=== PATIENT | female | born 1985 | race Asian ===

== ENCOUNTER 2017-05-23 00:30 | Observation (INO) | payer BC, OTHER ==
[2017-05-23 01:14] VITALS: BMI 20.5
[2017-05-23] MEDS ORDERED: Lidocaine 2% Viscous Solution 20 ML, Aluminum & Magnesium Hydroxide 30 ML, Donnatal Eli... SSW SCH (02:00)
[2017-05-23] MEDS ORDERED: Sodium Chloride 0.9% 10 ML ONE (03:13)
[2017-05-23] MEDS ORDERED: Morphine 10 MG/ML VIAL SLOW IVP SCH (03:15)
[2017-05-23] MEDS ORDERED: Ondansetron HCl/PF 4 MG/2 ML Vial IVP SCH (03:30)
[2017-05-23 03:46] LABS: #Lymphocytes 1.3 thou/uL (1.20-3.40); #Monocytes 0.7 thou/uL (0.11-0.59); #Neutrophils 7.1 thou/uL (1.40-6.50); %Basophils 0.5 % (0.0-1.0); %Eosinophils 0.3 % (0.0-10.0); %Lymphocytes 14.6 % (21.0-51.0); %Monocytes 7.2 % (0.0-10.0); %Neutrophils 77.4 % (42.0-75.0); Hemoglobin 10.9 g/dL (12.0-16.0); Mean Corpuscular HGB CONC 34.1 g/dL (32.0-36.0); Mean Corpuscular Hemoglobin 32.3 pg (27.0-31.0); Mean Corpuscular Volume 94.9 fl (81.0-99.0); Mean Platelet Volume 9.3 fL (7.4-10.4); Platelet Count 134 thou/uL (130-400); RBC Distribution Width 11.4 % (11.5-14.5); Red Blood Cell (RBC) Count 3.37 mill/uL (4.20-5.40); White Blood Cell (WBC) Count 9.2 thou/uL (4.8-10.8)
[2017-05-23 04:04] LABS: ALT (SGPT) 39 U/L (8-55); AST (SGOT) 37 U/L (5-34); Albumin 3.4 g/dL (3.5-5.0); Alkaline Phosphatase 166 U/L (40-150); Anion Gap 11 mmol/L (10-20); BUN (Urea Nitrogen) 6 mg/dL (7.0-18.7); Bilirubin, Total 1.6 mg/dL (0.2-1.2); Calc. Creatinine Clearance 126 mL/min (70-130); Calcium 8.3 mg/dL (7.8-10.44); Carbon Dioxide 24 mmol/L (22-29); Chloride 103 mmol/L (98-107); Estimated GFR-MDRD Greater than 90; Globulin 2.8 g/dL (2.4-3.5); Glucose 83 mg/dL (70-105); Lipase 19 U/L (8-78); Potassium 3.2 mmol/L (3.5-5.1); Protein, Total 6.2 g/dL (6.0-8.3); Sodium 135 mmol/L (136-145)
[2017-05-23] MEDS ORDERED: Ondansetron HCl/PF 4 MG/2 ML Vial IVP PRN (07:09)
[2017-05-23] MEDS ORDERED: Lactated Ringer's 1,000 ML IV SCH ×2 (07:15)
--- NOTE | 2017-05-23 08:20 | HP ---
DATE OF ENCOUNTER: 05/23/2017 [employer] ARTIST: Dr. Eliazar Pham. CHIEF COMPLAINT: Abdominal pain. HISTORY OF PRESENT ILLNESS: The patient is a 32-year-old G1, P0 female with an intrauterine at 35 weeks who is presenting today with abdominal pains that began several hours before presentation. The patient reports that she has been having abdominal pain and bad heartburn off and on for a while now for which she has been on Prilosec and other [id number] remedies. They report that her medications have been working this time. She reports some nausea. Denies any fever or headache, chest pain, shortness of breath. She denies any illness. Denies any new rash, abdominal pains, vaginal bleeding, leakage of fluid or urinary symptoms. PAST MEDICAL HISTORY: Negative. PAST SURGICAL HISTORY: Breast augmentation. SOCIAL HISTORY: Denies drug, alcohol or tobacco use. MEDICATIONS: vitamins and folic acid. ALLERGIES: No known drug allergies. OBSTETRICAL LABORATORY DATA: Blood type is O positive, antibody screen is negative. She is rubella immune, RPR nonreactive, GC chlamydia negative, hepatitis B surface antigen nonreactive, HIV nonreactive. One hour Glucola was 138. Her quad screen is negative. REVIEW OF SYSTEMS: Per HPI. PHYSICAL EXAMINATION: VITAL SIGNS: Blood pressure 105/58, heart rate 56, respiratory rate of 18, temperature 97.7. GENERAL: She appears to be in mild to moderate distress with this pain. She is alert and oriented, and cooperative and pleasant to interact with. HEENT: Head is normocephalic, atraumatic. LUNGS: Clear to auscultation bilaterally. HEART: Has a regular rate and rhythm. ABDOMEN: Soft. She does have some tenderness bilaterally. EXTREMITIES: Nontender, nonedematous. GENITOURINARY: Has been deferred. LABORATORY DATA AND IMAGING: Hemoglobin 10.9, hematocrit 32.0, platelets of 134 ,000, white count of 9.2. Sodium 135, potassium 3.2, creatinine 0.51, glucose 83, total bilirubin 1.6, AST 37, ALT 39. Amylase is 54, lipase is 19. Abdominal ultrasound, pending final report; however, preliminary report communication is that there are gallstones present and the common bile duct is dilated to 8 mm. ASSESSMENT: The patient is a 32-year-old G1, P0 female with an intrauterine at 35 weeks, presenting with acute onset abdominal pain and was found to have gallstones with dilated common bile duct. Her lab values are marginally abnormal with a bilirubin of 1.6 with the upper limits of normal at 1.2 and with AST of 37 with the upper limits of normal 34. Amylase and lipase are both negative. Patient is without pain now after one dose of 4 mg of morphine IV, which is covered her for the last 4 hours with the dilated common bile duct and marginal abnormalities. Plan at this time is to admit the patient for observation and repeat her lab work around noon and General Surgery needs to be consulted. We will order an MRCP to better evaluate for this potential gallstone in the bile duct. I have communicated with Dr. Pham who was asked the hospitalist team to continue to follow her today. NEELAM
--- NOTE | 2017-05-23 09:49 | ULT ---
PRELIMINARY REPORT/[facility]/EMERGENCY AFTER HOURS PROCEDURE: EXAM: US Abdomen Limited, Right Upper Quadrant EXAM DATE/TIME: Exam ordered 05/23/2017 4:05 AM CLINICAL HISTORY: 32 years old, female; Pain; Other: Upper abd pain, 35wks preg; TECHNIQUE: Real-time ultrasound of the right upper quadrant with image documentation. COMPARISON: No relevant prior studies available. FINDINGS: Liver: There is a nonspecific 1.6 cm hyperdense focus within the liver for which hemangioma or adenom a are possible. Gallbladder: There is no gallbladder wall thickening or pericholecystic fluid. A negative sonographic Salazar sign is reported. Multiple calcified gallstones are present. Common bile duct: Common bile duct measures approximately 9 mm in diameter. No stones. No dilation. Pancreas: Unremarkable as visualized. Right kidney: RIGHT kidney measures 9.2 x 4.8 x 5.2 cm. No stones. No hydronephrosis. IMPRESSION: 1. Cholelithiasis without definite ultrasound evidence of acute cholecystitis; note that negative Salazar's sign is not reliable as patient has been medicated. 2. There is a nonspecific 1.6 cm hyperdense focus within the liver for which hemangioma or adenoma ar e possible. Thank you for allowing us to participate in the care of your patient. Dictated and Authenticated by: Xavi Lo MD 05/23/2017 4:59 AM Central Time ([place] & [place]) FINAL REPORT GALLBLADDER ULTRASOUND: Cholelithiasis is noted. Gallbladder wall appears normal. There is a hyperechoic lesion in the right lobe of the liver measuring up to 1.6 cm. Considerations include a hepatic hemangioma as noted on the preliminary report. This could be confirmed or further evaluated with CT abdomen with and without contrast following hemangioma protocol. CODE T POS: [facility]
[2017-05-23 11:51] VITALS: TEMP 98.2
[2017-05-23 12:37] LABS: Hemoglobin 10.3 g/dL (12.0-16.0); Mean Corpuscular HGB CONC 34.6 g/dL (32.0-36.0); Mean Corpuscular Hemoglobin 32.5 pg (27.0-31.0); Mean Corpuscular Volume 94.1 fl (81.0-99.0); Mean Platelet Volume 9.5 fL (7.4-10.4); Platelet Count 123 thou/uL (130-400); RBC Distribution Width 11.4 % (11.5-14.5); Red Blood Cell (RBC) Count 3.16 mill/uL (4.20-5.40); White Blood Cell (WBC) Count 5.8 thou/uL (4.8-10.8)
[2017-05-23 13:08] LABS: ALT (SGPT) 31 U/L (8-55); AST (SGOT) 26 U/L (5-34); Alkaline Phosphatase 145 U/L (40-150); Anion Gap 6 mmol/L (10-20); BUN (Urea Nitrogen) 6 mg/dL (7.0-18.7); Bilirubin, Total 0.7 mg/dL (0.2-1.2); Calc. Creatinine Clearance 121 mL/min (70-130); Calcium 8.1 mg/dL (7.8-10.44); Carbon Dioxide 27 mmol/L (22-29); Chloride 105 mmol/L (98-107); Estimated GFR-MDRD Greater than 90; Globulin 2.4 g/dL (2.4-3.5); Glucose 70 mg/dL (70-105); Potassium 3.4 mmol/L (3.5-5.1); Protein, Total 5.4 g/dL (6.0-8.3); Sodium 135 mmol/L (136-145)
--- NOTE | 2017-05-23 14:08 | DIS ---
TIME OF SERVICE: 1400 HOSPITAL COURSE: Ms. Goncalves is a 32-year-old 1 at 35 weeks gestation who was placed in observa tion status for abdominal pain by Dr. Mcwilliams. She was found to have a mildly dilated common bile du ct on ultrasound with an AST of 37, ALT at 39 and a bilirubin of 1.6 upon admission. She was admitte d for IV fluids. MRCP was performed which revealed no evidence of stones in the common bile duct and just stones in the gallbladder. There was also noted to be a 1-2 cm lesion on the liver. Official report is not back yet, but it does not appear that this appears to be consistent with a malignancy. Repeat liver enzymes decreased. Her ALT and AST to within normal limits. Her bilirubin went from 1 .6 to 0.7 and her white count remained was 5.8 with hematocrit of 30%. The patient's pain resolved w ith IV fluids and antiemetics and was rated 0/10 upon discharge. She had no contractions. She had r eactive heart rate tracing throughout. The patient was sent home on a low fat diet with schedu led followup with Dr. Pham next week.
--- NOTE | 2017-05-23 14:39 | MRI ---
MRI OF THE ABDOMEN WITOUT CONTRAST: COMPARISON: Gallbladder ultrasound 05/23/17. HISTORY: Upper abdominal pain. TECHNIQUE: Multiplanar, multisequence MRI images were obtained of the abdomen without contrast. FINDINGS: There are multiple filling defects in the gallbladder consistent with cholelithiasis. The common mandy e duct is normal in caliber. No obvious filling defects are seen within the common bile duct. MRCP images show a normal-caliber common bile duct and pancreatic duct. There is a partially visualized and an enlarged uterus. The kidneys, adrenal glands, splee n, and pancreas are unremarkable. There are well-circumscribed foci of high T2 signal in the liver m easuring up to 1.8 cm in size. Contrast is not given, so these cannot be fully assessed and may repr esent either cysts or hemangiomas. IMPRESSION: 1. Cholelithiasis without evidence of choledocholithiasis. 2. Hepatic masses may represent hemangiomas or cysts. POS: [facility]
[2017-05-23 14:54] VITALS: BP 92/54
== END 2017-05-23 14:20 | disposition home or self-care (01) ==
LOC: ERS 00:30 → L&D/OP 00:30 → L&D 07:24 → UNDOADMOB 07:24 → EDSTATUS 12:25 → UNDODISOB 14:20
PROVIDERS: ADMIT Obstetrics & Gynecology; ATTEND Obstetrics & Gynecology
DX: O99.613 Diseases of the digestive system complicating pregnancy, third trimester (principal); K80.20 Calculus of gallbladder without cholecystitis without obstruction; K83.8 Other specified diseases of biliary tract; Z3A.35 35 weeks gestation of pregnancy; Z98.890 Other specified postprocedural states
CPT/HCPCS: 36415; 74181; 76705; 80053; 82150; 83690; 85025; 96360; 96361; G0378; J2270

== ENCOUNTER 2017-05-27 17:44 | Day surgery (SDC) | payer BC, OTHER ==
[2017-05-27 18:15] VITALS: BMI 21.0
[2017-05-27] MEDS ORDERED: Promethazine HCl 25 MG/ML VIAL IM/IV PRN (18:35)
--- NOTE | 2017-05-27 18:39 | PDOC.EVN ---
Event Note - Event Note Event Note: @1830: 32 year old G1 Po with knoewn HX GB stones, sees Dr Pham for care, here for RUQ colic. Some nausea, no emesis. No fever. No contrcations, no LOF, NO VB Review of systems: complete review done, findings per HPI Allergies: none Surg: None OB: G1 Physical: vitals stable, afebrile Neg murphys Abd NT Ut Gravid s=d Pelvic deferred Monitor: Cat 1, no contaction pattern Assessment: known GB stones, colic Plan: 1. Bentyl 2. Phenergan 3. CBC 4. CMP 5. NST
[2017-05-27 19:05] LABS: #Basophils 0.1 thou/uL (0.0-0.2); #Lymphocytes 1.3 thou/uL (1.20-3.40); #Monocytes 0.5 thou/uL (0.11-0.59); %Basophils 0.9 % (0.0-1.0); %Eosinophils 0.3 % (0.0-10.0); Hematocrit 32.2 % (36.0-47.0); Mean Platelet Volume 9.9 fL (7.4-10.4); White Blood Cell (WBC) Count 7.8 thou/uL (4.8-10.8)
[2017-05-27] MEDS ORDERED: Lactated Ringer's 1,000 ML IV SCH (19:15)
[2017-05-27 19:29] LABS: ALT (SGPT) 15 U/L (8-55); AST (SGOT) 15 U/L (5-34); Alkaline Phosphatase 155 U/L (40-150); Anion Gap 10 mmol/L (10-20); BUN (Urea Nitrogen) Less than 4 mg/dL (7.0-18.7); Bilirubin, Total 0.7 mg/dL (0.2-1.2); Calc. Creatinine Clearance 127 mL/min (70-130); Calcium 8.2 mg/dL (7.8-10.44); Carbon Dioxide 24 mmol/L (22-29); Chloride 106 mmol/L (98-107); Estimated GFR-MDRD Greater than 90; Globulin 2.8 g/dL (2.4-3.5)
[2017-05-27 20:11] VITALS: BP 98/61; TEMP 98.3
--- NOTE | 2017-05-27 20:12 | PDOC.EVN ---
Event Note - Event Note Event Note: Labs normal. No WBC elevation.
[2017-05-27] MEDS ORDERED: Morphine 4 MG/ML Carpuject IM SCH (21:15)
[2017-05-27] MEDS ORDERED: Morphine 10 MG/ML VIAL IM SCH (21:45)
== END 2017-05-27 22:00 | disposition home or self-care (01) ==
LOC: L&D/OP 17:44
PROVIDERS: ATTEND Obstetrics & Gynecology
DX: O99.613 Diseases of the digestive system complicating pregnancy, third trimester (principal); Z3A.36 36 weeks gestation of pregnancy; Z79.899 Other long term (current) drug therapy; Z98.890 Other specified postprocedural states
CPT/HCPCS: 36415; 80053; 85025; 96360; 96361; 96372; 96375; J2270; J2550

== ENCOUNTER 2017-06-16 10:10 | Inpatient (IN) | payer BC, MEDICAID ==
[~2017-06-16 10:10] MED LIST: Lidocaine 2% Viscous Solution 20 ML, Aluminum & Magnesium Hydroxide 30 ML, Donnatal Eli... SSW SCH
[2017-06-17] MEDS ORDERED: Ondansetron HCl/PF 4 MG/2 ML Vial IVP PRN ×3 (05:41→16:55)
[2017-06-17] MEDS ORDERED: Zolpidem Tartrate 5 MG TAB PO PRN ×2 (05:41→16:55)
[2017-06-17] MEDS ORDERED: Ibuprofen 800 MG TAB PO PRN (05:41)
[2017-06-17] MEDS ORDERED: Docusate 100 MG CAP PO PRN (05:41)
[2017-06-17] MEDS ORDERED: LR 500 ML/Oxytocin 10 units 500 ML IV SCH (05:41)
[2017-06-17] MEDS ORDERED: Misoprostol 200 MCG TAB PR PRN (05:41)
[2017-06-17] MEDS ORDERED: Lidocaine 1% (PF) 30 ML VIAL SC PRN (05:41)
[2017-06-17] MEDS ORDERED: LR / Pitocin 40 units/1000 ml 1,000 ML IV PRN (05:41)
[2017-06-17] MEDS ORDERED: Acetaminophen 500 MG TAB PO PRN (05:41)
[2017-06-17] MEDS ORDERED: HYDROcodone/Acetaminophen 5/325 mg Tablet PO PRN ×2 (05:41)
[2017-06-17] MEDS ORDERED: Diphenoxylate HCl/Atropine Tablet PO PRN ×2 (05:41)
[2017-06-17] MEDS ORDERED: Promethazine HCl 25 MG/ML VIAL IM PRN ×2 (05:41→13:29)
[2017-06-17 06:00] VITALS: BMI 20.5
[2017-06-17] MEDS: Lactated Ringer's 1,000 ML IV SCH ×2 (06:22→10:48)
[2017-06-17 06:33] LABS: Hemoglobin 11.8 g/dL (12.0-16.0); Mean Corpuscular HGB CONC 33.2 g/dL (32.0-36.0); Mean Corpuscular Volume 93.5 fl (81.0-99.0); Mean Platelet Volume 9.9 fL (7.4-10.4); Platelet Count 138 thou/uL (130-400); RBC Distribution Width 11.7 % (11.5-14.5)
[2017-06-17 07:14] LABS: Syphilis Antibody Nonreactive (Nonreactive); Syphilis Antibody Index 0.03 S/CO (<1.00 Non-Reactive)
[2017-06-17] MEDS ORDERED: Fentanyl 4 mcg/Marc 0.1% Cadd 100 ML ONE (08:41)
[2017-06-17 08:57] LABS: HBSAg Index 0.63 S/CO (0-0.99); Hep B Surf Ag Non-Reactive S/CO (NonReactive)
[2017-06-17] MEDS ORDERED: Bupivacaine PF 0.5% 30 ML VIAL ONE (11:11)
[2017-06-17] MEDS ORDERED: Bupivacaine 0.25% 10 ML VIAL ONE (11:11)
[2017-06-17] MEDS ORDERED: Naloxone HCl 0.4 mg/ml Vial IVP PRN ×2 (13:29)
[2017-06-17] MEDS ORDERED: Eucerin (Mineral Oil/Petrolatum,White) 30 gm Jar TOP PRN (13:29)
[2017-06-17] MEDS ORDERED: diphenhydrAMINE 50 MG/ML VIAL IVP PRN (13:29)
[2017-06-17] MEDS ORDERED: Acetaminophen 325 MG TAB PO PRN (13:29)
[2017-06-17] MEDS ORDERED: Lactated Ringer's 500 ML IV PRN (13:29)
[2017-06-17] MEDS ORDERED: ePHEDrine/0.9% NaCl/PF SYRINGE 50 mg/10 ml SLOW IVP PRN (13:29)
[2017-06-17] MEDS ORDERED: Communication Order-Pharmacy FS SCH (13:30)
[2017-06-17] MEDS ORDERED: Fentanyl 4mcg/Marcaine 0.1% Cassette 100 ML EPIDURAL SCH (13:30)
[2017-06-17] MEDS ORDERED: Milk Of Magnesia 30 ML UDCUP PO PRN (16:55)
[2017-06-17] MEDS ORDERED: Preparation H Ointment 28 GM TUBE PR PRN (16:55)
[2017-06-17] MEDS ORDERED: Acetaminophen/Codeine 30-300mg Tablet PO PRN ×2 (16:55)
[2017-06-17] MEDS ORDERED: diphenhydrAMINE 25 MG CAP PO PRN (16:55)
[2017-06-17] MEDS ORDERED: Adacel (T-DAP) 0.5 ML VIAL IM ONE (16:55)
[2017-06-17] MEDS ORDERED: Benzocaine/Menthol 20-0.5% 60 ML CAN TOP PRN (16:55)
[2017-06-17] MEDS ORDERED: Bisacodyl 10 MG SUPP PR PRN (16:55)
[2017-06-17] MEDS ORDERED: Lanolin Ointment 7 GM TUBE TOP PRN (16:55)
[2017-06-17] MEDS ORDERED: Misoprostol 200 MCG TAB VAG SCH (17:00)
[2017-06-17] MEDS ORDERED: LR / Pitocin 40 units/1000 ml 1,000 ML IV SCH (17:00)
[2017-06-17] MEDS: Ferrous Sulfate 325 MG TAB PO SCH (19:12)
[2017-06-17] MEDS: Docusate Calcium (SURFAK) 240 MG CAP PO SCH (20:52)
[2017-06-17] MEDS: Ibuprofen 800 MG TAB PO SCH (20:53)
[2017-06-18] MEDS: Ibuprofen 800 MG TAB PO SCH ×3 (03:43→21:44)
[2017-06-18 07:45] LABS: Mean Corpuscular HGB CONC 33.4 g/dL (32.0-36.0); Mean Corpuscular Hemoglobin 31.2 pg (27.0-31.0); Mean Corpuscular Volume 93.5 fl (81.0-99.0); Mean Platelet Volume 9.8 fL (7.4-10.4); Platelet Count 121 thou/uL (130-400); RBC Distribution Width 11.8 % (11.5-14.5); White Blood Cell (WBC) Count 10.7 thou/uL (4.8-10.8)
[2017-06-18] MEDS: Docusate Calcium (SURFAK) 240 MG CAP PO SCH ×2 (09:35→21:44)
[2017-06-18] MEDS: Prenatal Vitamin 1 TAB PO SCH (09:35)
[2017-06-18] MEDS: Ferrous Sulfate 325 MG TAB PO SCH ×2 (09:37→17:40)
[2017-06-19] MEDS: Ibuprofen 800 MG TAB PO SCH (06:17)
[2017-06-19] MEDS: Ferrous Sulfate 325 MG TAB PO SCH (09:16)
[2017-06-19] MEDS: Docusate Calcium (SURFAK) 240 MG CAP PO SCH (09:17)
[2017-06-19] MEDS: Prenatal Vitamin 1 TAB PO SCH (09:17)
[2017-06-19 13:34] VITALS: BP 111/56; TEMP 98.4
== END 2017-06-19 13:30 | disposition home or self-care (01) | DRG 775 ==
LOC: L&D 06-17 05:37 → 3SW 06-17 18:46
PROVIDERS: ADMIT Obstetrics & Gynecology; ATTEND Obstetrics & Gynecology
PROC: 10E0XZZ Delivery of Products of Conception, External Approach (ICD-10-PCS; principal; 2017-06-17)
PROC: 0KQM0ZZ Repair Perineum Muscle, Open Approach (ICD-10-PCS; 2017-06-17)
PROC: 10907ZC Drainage of Amniotic Fluid, Therapeutic from Products of Conception, Via Natural or Artificial Opening (ICD-10-PCS; 2017-06-17)
DX: O99.62 Diseases of the digestive system complicating childbirth (principal); K80.20 Calculus of gallbladder without cholecystitis without obstruction; O70.1 Second degree perineal laceration during delivery; Z3A.39 39 weeks gestation of pregnancy; Z37.0 Single live birth
CPT/HCPCS: 36415; 51702; 85027; 86780; 87340; J2001; J7120; S0020